=== PATIENT | female | born 1950 ===

== ENCOUNTER 2017-06-14 17:12 | Emergency (ER) | payer OTHER ==
[2017-06-14 17:25] VITALS: BP 167/83; PULSE 65; RESP 18; TEMP 98; O2SAT 98
[2017-06-14] MEDS ORDERED: Naproxen 550 mg Tab PO STA (18:11)
--- NOTE | 2017-06-14 18:19 | C.PDOC ---
History Of Present Illness Patient presents to ED c/o right sided posterior shoulder pain since yesterday. Patient denies falls/injuries, cough, fever, chest pain, abdominal pain, vomiting/diarrhea, fever, cough. Patient also states she sometimes has an area of swelling in her left upper abdomen, feels like an area bulging out. Patient has h/o lap cholecystectomy and CABG. Time Seen by Provider: 06/14/17 17:56 Chief Complaint (Nursing): Back Pain History Per: Patient History/Exam Limitations: no limitations Onset/Duration Of Symptoms: Days Current Symptoms Are (Timing): Still Present Quality Of Discomfort: "Pain" Severity: Mild Past Medical History Reviewed: Historical Data, Nursing Documentation, Vital Signs Vital Signs: Last Vital Signs Temp 98 F 06/14/17 17:22 Pulse 65 06/14/17 17:22 Resp 18 06/14/17 17:22 BP 167/83 H 06/14/17 17:22 Pulse Ox 98 06/14/17 18:46 - Medical History PMH: HTN, Hypercholesterolemia Surgical History: CABG, Cholecystectomy - [facility] Procedures CORONAR ARTERIOGR-2 CATH (12/08/14) LEFT HEART CARDIAC CATH (12/08/14) LT HEART ANGIOCARDIOGRAM (12/08/14) Family History: States: No Known Family Hx - Social History Hx Tobacco Use: No Hx Alcohol Use: No Hx Substance Use: No - Immunization History Hx Tetanus Toxoid Vaccination: Yes Hx Influenza Vaccination: Yes Hx Pneumococcal Vaccination: No Review Of Systems Except As Marked, All Systems Reviewed And Found Negative. Constitutional: Negative for: Fever, Chills Cardiovascular: Negative for: Chest Pain, Palpitations Respiratory: Negative for: Cough, Shortness of Breath Gastrointestinal: Negative for: Nausea, Vomiting, Abdominal Pain, Diarrhea Musculoskeletal: Positive for: Shoulder Pain (right shoulder posterior pain) Skin: Negative for: Rash Neurological: Negative for: Weakness, Numbness Physical Exam - Physical Exam Appears: Well, Non-toxic, No Acute Distress Skin: Normal Color, Warm, Dry, No Rash Oral Mucosa: Moist Neck: Normal, Normal ROM, No Midline Cervical Tenderness, No Paracervical Tenderness, Supple Cardiovascular: Rhythm Regular Respiratory: Normal Breath Sounds, No Rales, No Rhonchi, No Wheezing Gastrointestinal/Abdominal: Normal Exam, Bowel Sounds, Soft, No Tenderness, Other (no palpable hernias) Back: Normal Inspection, No CVA Tenderness Extremity: Tenderness (right shoulder mild diffuse TTP without swelling/ deformity/erythema), Capillary Refill (< 2 sec all digits ), No Deformity, No Swelling Extremity: Bilateral: Normal Color And Temperature, Normal ROM Pulses: Left Radial: Normal, Right Radial: Normal Neurological/Psych: Oriented x3, Normal Sensation Gait: Steady ED Course And Treatment O2 Sat by Pulse Oximetry: 98 (RA) Pulse Ox Interpretation: Normal - Other Rad RIGHT SHOULDER XRAY X-Ray: Interpreted by Me, Viewed By Me (no fractures/dislocations, (+) arthritic changes) Progress Note: Right shoulder Xray ordered and reviewed. Patient given PO Naprosyn and Flexeril. Reevaluation Time: 18:40 Reassessment Condition: Improved (Patient reassessed, is resting comfortably and states her pain has improved. Xray (-) for acute bony injury. Patient given Rxs for Naprosyn , Flexeril and instructed to follow up with PMD in 1-2 days. She was also given general surgery information for follow up (possible hernia). She understands she should return to ED if symptoms worsen.) Disposition Counseled Patient/Family Regarding: Studies Performed, Diagnosis, Need For Followup, Rx Given - Disposition Referrals: Jennifer Phan MD [Staff Provider] - Yolis Pandya MD [Staff Provider] - Disposition: HOME/ ROUTINE Disposition Time: 18:45 Condition: STABLE Additional Instructions: SEGUIMIENTO CON EL PEDIATRA EN 1-2 SULLIVAN USE MEDICAMENTOS SEGN LO DIRIGIDO INGA AL PACIENTE MUCHOS FLUIDOS DEVUELVA A LA SP DE EMERGENCIA SI LOS SNTOMAS EMPEORARAN Prescriptions: Cyclobenzaprine [Cyclobenzaprine HCl] 10 mg PO BID PRN #12 tab PRN Reason: pain/muscle Naproxen [Naprosyn Tab] 375 mg PO BID PRN #20 tab PRN Reason: pain Instructions: Shoulder Sprain (ED) Forms: [facility] (Dutch) Print Language: LATVIAN - POA Present On Arrival: None - Clinical Impression Clinical Impression: Right shoulder pain
[2017-06-14] MEDS ORDERED: Naproxen 550 mg Tab PO ONE (18:38)
--- NOTE | 2017-06-15 06:26 | RAD ---
PROCEDURE: Radiographs of the Right Shoulder HISTORY: right shoulder pain COMPARISON: No prior. FINDINGS: BONES: No evidence of acute fracture. JOINTS: Moderate osteoarthritic changes at the right AC joint associated with narrowing of the joint and inferior spur SOFT TISSUES: Normal. OTHER FINDINGS: None. IMPRESSION: Moderate osteoarthritic changes. No evidence of acute fracture or dislocation
== END 2017-06-14 18:57 | disposition home or self-care (01) ==
LOC: C.ER 17:12
DX: M25.511 Pain in right shoulder (principal)

== ENCOUNTER 2017-11-18 15:41 | Emergency (ER) | payer MEDICARE, OTHER ==
--- NOTE | 2017-11-18 16:47 | C.PDOC ---
History Of Present Illness 67 yo come in for evaluation of Left sided upper back and chest wall pain gradually developed for past 3-4 days. Pt reports, pain is intermittent, worse with movement, reproducible. Pt reports, " slipped on steps and almost fell, but was able to catch and hold on to railing". Otherwise, pt denies headache, dizziness, neck pain, SOB, cough, palpitation, diaphoresis, abd. pain, N/V, UTI sx. Ambulate to ED for evaluation, not in any apparent distress. Time Seen by Provider: 11/18/17 16:30 Chief Complaint (Nursing): Back Pain History Per: Patient History/Exam Limitations: no limitations Onset/Duration Of Symptoms: Days (3-4 days) Past Medical History Reviewed: Historical Data, Nursing Documentation, Vital Signs Vital Signs: Last Vital Signs Temp 97.5 F L 11/18/17 17:23 Pulse 68 11/18/17 17:23 Resp 20 11/18/17 17:23 BP 153/76 H 11/18/17 17:23 Pulse Ox 100 11/18/17 18:23 - Medical History PMH: HTN, Hypercholesterolemia Surgical History: CABG, Cholecystectomy - [facility] Procedures CORONAR ARTERIOGR-2 CATH (12/08/14) LEFT HEART CARDIAC CATH (12/08/14) LT HEART ANGIOCARDIOGRAM (12/08/14) Family History: States: No Known Family Hx - Social History Hx Tobacco Use: No Hx Alcohol Use: No Hx Substance Use: No - Immunization History Hx Tetanus Toxoid Vaccination: Yes Hx Influenza Vaccination: Yes Hx Pneumococcal Vaccination: No Review Of Systems Except As Marked, All Systems Reviewed And Found Negative. Cardiovascular: Positive for: Other ((+) chest wall pain). Negative for: Palpitations Respiratory: Negative for: Cough, Shortness of Breath Gastrointestinal: Negative for: Nausea, Vomiting, Abdominal Pain Musculoskeletal: Positive for: Back Pain (left sided upper back ). Negative for : Neck Pain Neurological: Negative for: Headache, Dizziness Physical Exam - Physical Exam Appears: Well, Non-toxic, No Acute Distress Skin: Normal Color, Warm, Dry, No Rash Head: Atraumatic, Normacephalic Eye(s): bilateral: PERRL Nose: No Flaring, No Discharge Oral Mucosa: Moist, No Drooling Throat: No Erythema, No Exudate, No Drooling Neck: Trachea Midline, No Midline Cervical Tenderness, No Paracervical Tenderness, No Step Off Deformity, Supple Chest: Symmetrical, Tenderness (mild Left anterior chest wall overlying 3-5 intercostal spaces. NO palpable deformity.), No Ecchymosis, No Subcutaneous Emphysema Cardiovascular: Rhythm Regular, No Murmur, No JVD, Other ((-) carotid bruits B/L ) Respiratory: No Decreased Breath Sounds, No Accessory Muscle Use, No Stridor, No Wheezing Gastrointestinal/Abdominal: Soft, No Tenderness, No Distention, No Guarding Back: No CVA Tenderness, No Vertebral Tenderness, Other ((+)reproducible tenderness Left periscapular area. No palpabe deformity, no skin changes.) Extremity: Normal ROM, No Pedal Edema, No Deformity, No Swelling Neurological/Psych: Oriented x3, Normal Speech, Normal Motor, Normal Sensation, Normal Reflexes ED Course And Treatment - Laboratory Results Result Diagrams: 11/18/17 17:45 11/18/17 17:45 Lab Interpretation: No Acute Changes ECG: Interpreted By Me, Viewed By Me ECG Rhythm: Sinus Rhythm Interpretation Of ECG: SR@70/min, NAD, no acute T wave or ST-T changes. Rate From EC (BPM) O2 Sat by Pulse Oximetry: 100 (RA) Pulse Ox Interpretation: Normal - Radiology CXR: Viewed By Me CXR Interpretation: Yes: No Acute Disease, Other (s/p CABG) Progress Note: After my initial evaluation, EKG, CXR performed. case discussed with and one jimmy of troponin recomend. On re-eval, at 18:20, blood work review and apears without acute abnormalities. Case discussed with again , blood work review, Troponin- negative, clinically pain appears reproducible, discahrge recommend at this time. On re-eval, pt is afebrile, hemodynamicaly stable. non-toxic. PulseOx 100% RA. Neck: SUpple, (-) JVD, (-) carotid bruits. Lungs: CTA B/L, BS equal B/L. CVS: (+)S1S2, reg, (-) murmur. ABd: benign. Neurologicaly intact. Pt advised and ref. to F/U with PMD in 1-2 days for re-eval. return to ED at any time if any worsening or new changes. Medical Decision Making Medical Decision Making: PLAN: * CXR * EKG * Troponin * CBC * BMP * Urinalysis * Tramadol PO Disposition Counseled Patient/Family Regarding: Studies Performed, Diagnosis, Need For Followup, Rx Given - Disposition Referrals: Jennifer Phan MD [Staff Provider] - Disposition: HOME/ ROUTINE Disposition Time: 18:24 Condition: STABLE Additional Instructions: Light duty to back area, avoid any type of physical activity for 1 week Take pain medication as need Follow up with PMD in 1-2 days for re-evaluation. Return to ED if any worsening or new changes. Prescriptions: Methocarbamol [Robaxin] 500 mg PO TID #14 tab traMADol [Ultram] 50 mg PO TID #7 tab Instructions: Muscle Spasm (ED), Back Pain (ED) Forms: [employer] (Montserratian) - Clinical Impression Clinical Impression: Thoracic back pain, Chest pain - PA / SUPERVISOR MIRROR [employer]RICATION / Resident Statement MD/DO has reviewed & agrees with the documentation as recorded. - Scribe Statement The provider has reviewed the documentation as recorded by the Scribe Lexis Zhang All medical record entries made by the Scribe were at my direction and personally dictated by me. I have reviewed the chart and agree that the record accurately reflects my personal performance of the history, physical exam, medical decision making, and the department course for this patient. I have also personally directed, reviewed, and agree with the discharge instructions and disposition.
[2017-11-18 17:02] LABS: SQUAMOUS EPITHIAL 1 /hpf (0-5); URINE BACTERIA RARE (<OCC); URINE BILIRUBIN NEGATIVE (NEGATIVE); URINE BLOOD NEGATIVE (NEGATIVE); URINE CLARITY Clear (Clear); URINE COLOR Yellow (YELLOW); URINE GLUCOSE (UA) NORMAL (Normal); URINE LEUKOCYTE ESTERASE NEGATIVE Leu/uL (Negative); URINE NITRATE NEGATIVE (NEGATIVE); URINE PROTEIN NEGATIVE (NEGATIVE); URINE UROBILINOGEN NORMAL mg/dL (0.2-1.0)
--- NOTE | 2017-11-18 17:21 | RAD ---
HISTORY: Cough COMPARISON: 08/21/2016 TECHNIQUE: Chest PA and lateral FINDINGS: LUNGS: Increased interstitial markings/chronic finding identified previously. PLEURA: No significant pleural effusion identified. No pneumothorax apparent. CARDIOVASCULAR: No radiographic findings to suggest acute or significant cardiovascular disease. OSSEOUS STRUCTURES: No significant abnormalities. VISUALIZED UPPER ABDOMEN: Normal. OTHER FINDINGS: None. IMPRESSION: No active disease. No significant interval change compared to the prior examination(s).
[2017-11-18 17:24] VITALS: BP 153/76; PULSE 68; RESP 20; TEMP 97.5
[2017-11-18 17:39] VITALS: O2SAT 100
[2017-11-18 17:51] LABS: BASO % 0.7 % (0.0-2.0); EOS # 0.1 K/uL (0.0-0.7); EOS % 1.5 % (0.0-4.0); HEMOGLOBIN 12.9 g/dL (11.0-16.0); LYMPH # 2.7 K/uL (1.0-4.3); LYMPH % 40.7 % (20.0-40.0); MEAN CELL VOLUME 87.1 fL (81.0-99.0); MEAN CORPUSCULAR HEMOGLOBIN 30.1 pg (27.0-31.0); MEAN CORPUSCULAR HGB CONC 34.5 g/dL (33.0-37.0); MEAN PLATELET VOLUME 8.9 fL (7.2-11.7); MONO # 0.6 K/uL (0.0-0.8); MONO % 8.8 % (0.0-10.0); NEUT # 3.2 K/uL (1.8-7.0); NEUT % 48.3 % (50.0-75.0); NRBC % 0.1 % (0.0-2.0); RBC 4.28 Mil/uL (3.80-5.20); RED CELL DISTRIBUTION WIDTH 13.8 % (11.5-14.5); WHITE BLOOD COUNT 6.7 K/uL (4.8-10.8)
[2017-11-18 18:10] LABS: BLOOD UREA NITROGEN 10 mg/dL (7-17); CALCIUM 8.4 mg/dl (8.6-10.4); GFR AFRICAN-AMERICAN > 60; GFR NON-AFRICAN AMERICAN > 60
--- NOTE | 2017-11-20 00:02 | CARD ---
APPROVED REPORT EKG Measurement Heart [id number] <Conclusion> Normal sinus rhythm Nonspecific T wave abnormality Abnormal ECG
== END 2017-11-18 18:35 | disposition home or self-care (01) ==
LOC: C.ER 15:41
DX: M54.6 Pain in thoracic spine (principal); R07.9 Chest pain, unspecified

== ENCOUNTER 2018-03-29 18:05 | Emergency (ER) | payer MEDICARE, OTHER ==
[2018-03-29 18:21] VITALS: BP 129/76; PULSE 66; RESP 18; TEMP 98.3; O2SAT 100
--- NOTE | 2018-03-29 18:45 | C.PDOC ---
History Of Present Illness 67 year old female presenting to the ER status post fall complaining of right knee pain. Patient states she tripped and fell. Pain is worsened by movement. Patient denies any tingling, numbness, or weakness. Time Seen by Provider: 03/29/18 18:21 Chief Complaint (Nursing): Lower Extremity Problem/Injury History Per: Patient History/Exam Limitations: no limitations Onset/Duration Of Symptoms: Days Current Symptoms Are (Timing): Still Present - Knee Description Of Injury: Other (Tripped and fell) Past Medical History Reviewed: Historical Data, Nursing Documentation, Vital Signs Vital Signs: Last Vital Signs Temp 98.3 F 03/29/18 18:20 Pulse 66 03/29/18 18:20 Resp 18 03/29/18 18:20 BP 129/76 03/29/18 18:20 Pulse Ox 100 03/29/18 19:12 - Medical History PMH: HTN, Hypercholesterolemia Surgical History: CABG, Cholecystectomy - [facility] Procedures CORONAR ARTERIOGR-2 CATH (12/08/14) LEFT HEART CARDIAC CATH (12/08/14) LT HEART ANGIOCARDIOGRAM (12/08/14) Family History: States: No Known Family Hx - Social History Hx Tobacco Use: No Hx Alcohol Use: No Hx Substance Use: No - Immunization History Hx Tetanus Toxoid Vaccination: Yes Hx Influenza Vaccination: Yes Hx Pneumococcal Vaccination: No Review Of Systems Except As Marked, All Systems Reviewed And Found Negative. Musculoskeletal: Positive for: Other (Right knee pain ) Neurological: Negative for: Weakness, Numbness Physical Exam - Physical Exam Appears: Non-toxic, No Acute Distress Skin: Normal Color, Warm, Dry Head: Atraumatic, Normacephalic Eye(s): bilateral: Normal Inspection Neck: Supple Chest: Symmetrical Cardiovascular: Rhythm Regular Respiratory: Normal Breath Sounds Extremity: Normal ROM (Right leg), Tenderness (Mild tenderness to anterior right knee ), No Calf Tenderness, No Deformity, No Swelling Neurological/Psych: Oriented x3, Normal Speech Gait: Steady ED Course And Treatment O2 Sat by Pulse Oximetry: 100 (RA) Pulse Ox Interpretation: Normal Medical Decision Making Medical Decision Making: Impression: Right Knee Pain s.p injury Plan: XR Right Knee Ibuprofen 600mg PO Progress: Xray viewed by me showing no acute fracture, dislocation or effusion On reassessment, patient is resting comfortably, and is in no acute distress. Patient was instructed to follow up with physician/clinic in 1-2 days for further evaluation. Disposition Counseled Patient/Family Regarding: Studies Performed, Diagnosis, Need For Followup - Disposition Referrals: Keanu Solano MD [Staff Provider] - Disposition: HOME/ ROUTINE Disposition Time: 18:44 Condition: GOOD Additional Instructions: Your xray was normal, no fracture. Please apply ice to area 15 minutes three times a day. Take Motrin as needed for pain every 6 hours, with food to not upset stomach. Follow up with orthopedic if pain persists over one week. Tu radiografa fue normal, sin fractura. Por favor aplique hielo en el emerson 15 minutos ana maria veces al da. Lohman Motrin cuando sea necesario para el dolor cada 6 horas, con alimentos para no alterar el estmago. Princess un seguimiento con ortopedia si el dolor persiste jai amelia semana. Instructions: Contusion (DC) Print Language: KINYARWANDA - POA Present On Arrival: Falls Or Trauma - Clinical Impression Clinical Impression: Contusion, knee
--- NOTE | 2018-03-30 11:02 | RAD ---
PROCEDURE: Right Knee Radiographs. HISTORY: pain s.p trip and fall COMPARISON: None. FINDINGS: BONES: No acute fracture or destructive bony lesion identified. JOINTS: Cortical sclerosis and limited joint space narrowing seen at the medial and patellofemoral compartments compatible with osteoarthritis once again. Subtle solitary surgical sulci in the medial left knee soft tissues extrinsic to the joint. JOINT EFFUSION: None. OTHER FINDINGS: None. IMPRESSION: Stable degenerative joint disease. No acute fracture, subluxation or dislocation identified.
== END 2018-03-29 18:50 | disposition home or self-care (01) ==
LOC: C.ER 18:05
DX: S80.01XA Contusion of right knee, initial encounter (principal); W01.0XXA Fall on same level from slipping, tripping and stumbling without subsequent striking against object, initial encounter; Y92.9 Unspecified place or not applicable

== ENCOUNTER 2018-06-24 11:47 | Emergency (ER) | payer MEDICARE, OTHER ==
[2018-06-24 11:59] VITALS: PULSE 72
[2018-06-24] MEDS ORDERED: Sodium Chloride 0.9% 1,000 ML IV ONE (12:44)
--- NOTE | 2018-06-24 12:46 | C.PDOC ---
History Of Present Illness 68 year old female patient with hx of HLD and mastectomy presents to the ER with c/o vomiting last night. Patient states she had 2 episodes of vomiting last night. Associated symptom includes: abdominal pain. Patient denies fever, chills, cough, chest pain and SOB. Chief Complaint (Nursing): Abdominal Pain History Per: Patient History/Exam Limitations: no limitations Onset/Duration Of Symptoms: Hrs Current Symptoms Are (Timing): Still Present Past Medical History Reviewed: Historical Data, Nursing Documentation, Vital Signs Vital Signs: Last Vital Signs Temp 98.5 F 06/24/18 14:42 Pulse 72 06/24/18 14:42 Resp 16 06/24/18 14:42 BP 122/70 06/24/18 14:42 Pulse Ox 99 06/24/18 14:42 - Medical History PMH: HTN, Hypercholesterolemia Surgical History: CABG, Cholecystectomy - [facility] Procedures CORONAR ARTERIOGR-2 CATH (12/08/14) LEFT HEART CARDIAC CATH (12/08/14) LT HEART ANGIOCARDIOGRAM (12/08/14) Family History: States: Unknown Family Hx - Social History Hx Tobacco Use: No Hx Alcohol Use: No Hx Substance Use: No - Immunization History Hx Tetanus Toxoid Vaccination: Yes Hx Influenza Vaccination: Yes Hx Pneumococcal Vaccination: No Review Of Systems Except As Marked, All Systems Reviewed And Found Negative. Constitutional: Negative for: Fever, Chills Cardiovascular: Negative for: Chest Pain Respiratory: Negative for: Cough, Shortness of Breath Gastrointestinal: Positive for: Vomiting, Abdominal Pain Physical Exam - Physical Exam Appears: Well, Non-toxic, No Acute Distress Skin: Normal Color, Warm, Dry Head: Atraumatic, Normacephalic Eye(s): bilateral: Normal Inspection Oral Mucosa: Moist Throat: Normal Neck: Normal ROM, Supple Chest: Symmetrical, No Deformity, Tenderness Respiratory: Normal Breath Sounds Gastrointestinal/Abdominal: Soft, No Tenderness Extremity: Normal ROM (x4) Neurological/Psych: Oriented x3, Normal Speech Gait: Steady ED Course And Treatment - Laboratory Results Result Diagrams: 06/24/18 12:59 06/24/18 12:59 O2 Sat by Pulse Oximetry: 97 (RA) Pulse Ox Interpretation: Normal Medical Decision Making Medical Decision Making: Impression: gastritis Plans: -- EKG -- blood work -- pepcid -- IV fluids -- Zofran injection Reassess: Patient is resting comfortably. Tolerating PO. Patient feels better and feels comfortable going home. Patient is advised to f/u with PMD in 1-2 days. Disposition - Disposition Referrals: [facility] [place] [Outside] [facility] at [facility] [Outside] [facility] at [place] [Outside] Disposition: HOME/ ROUTINE Disposition Time: 14:47 Condition: GOOD Prescriptions: Famotidine [Pepcid] 40 mg PO DAILY #30 tablet Forms: [employer] (Lao) - Clinical Impression Clinical Impression: Gastritis - Scribe Statement The provider has reviewed the documentation as recorded by the Scribe Vital Do Provider Attestation: All medical record entries made by the Scribe were at my direction and personally dictated by me. I have reviewed the chart and agree that the record accurately reflects my personal performance of the history, physical exam, medical decision making, and the department course for this patient. I have also personally directed, reviewed, and agree with the discharge instructions and disposition.
[2018-06-24 13:04] LABS: BASO % 0.3 % (0.0-2.0); EOS % 0.2 % (0.0-4.0); HEMOGLOBIN 12.7 g/dL (11.0-16.0); LYMPH # 2.9 K/uL (1.0-4.3); LYMPH % 22.9 % (20.0-40.0); MEAN CELL VOLUME 87.6 fL (81.0-99.0); MEAN CORPUSCULAR HEMOGLOBIN 29.5 pg (27.0-31.0); MEAN CORPUSCULAR HGB CONC 33.7 g/dL (33.0-37.0); MEAN PLATELET VOLUME 8.9 fL (7.2-11.7); MONO # 1.1 K/uL (0.0-0.8); NEUT # 8.6 K/uL (1.8-7.0); NEUT % 67.6 % (50.0-75.0); RBC 4.29 Mil/uL (3.80-5.20); RED CELL DISTRIBUTION WIDTH 13.9 % (11.5-14.5)
[2018-06-24] MEDS ORDERED: Sodium Chloride 0.9% 1,000 ML ONE (13:04)
[2018-06-24 13:08] LABS: WHITE BLOOD COUNT 12.7 K/uL (4.8-10.8)
[2018-06-24 13:24] LABS: ALB/GLOB RATIO 1.3 (1.0-2.1); ALBUMIN 4.1 g/dL (3.5-5.0); CALCIUM 8.7 mg/dl (8.6-10.4); GFR NON-AFRICAN AMERICAN > 60; LIPASE 37 U/L (23-300)
[2018-06-24 13:26] LABS: ALT/SGPT 34 U/L (9-52); AST/SGOT 26 U/L (14-36); BLOOD UREA NITROGEN 12 mg/dL (7-17)
[2018-06-24] MEDS ORDERED: Potassium Chloride 10 mEq ER Tab PO ONE (14:39)
[2018-06-24 14:43] VITALS: BP 122/70; RESP 16; TEMP 98.5
--- NOTE | 2018-06-25 00:14 | CARD ---
APPROVED REPORT Date of service: 06/24/2018 EKG Measurement Heart [id number] <Conclusion> Normal sinus rhythm Nonspecific T wave abnormality Abnormal ECG
[2018-06-25] MEDS ORDERED: Potassium Chloride 10 mEq ER Tab PO ONE (14:22)
[2018-06-27 12:51] VITALS: O2SAT 97
== END 2018-06-24 14:48 | disposition home or self-care (01) ==
LOC: C.ER 11:47
DX: K29.70 Gastritis, unspecified, without bleeding (principal)
CPT/HCPCS: 80053; 83690; 84484; 85025; 93005; 96361; 96374; 96375; 99284; J2405; J7030

== ENCOUNTER 2018-12-11 16:39 | Emergency (ER) | payer MEDICARE, MEDICAID ==
--- NOTE | 2018-12-11 17:26 | C.PDOC ---
<Mary Romano - Last Filed: 12/11/18 17:26> <Aurea Caldwell - Last Filed: 12/11/18 17:45> Time Seen by Provider: 12/11/18 17:03 Chief Complaint (Nursing): Allergic Reaction Past Medical History Vital Signs: Last Vital Signs Temp 98.3 F 12/11/18 16:48 Pulse 78 12/11/18 16:48 Resp 20 12/11/18 16:48 BP 168/83 H 12/11/18 16:48 Pulse Ox 99 12/11/18 16:48 - Medical History PMH: HTN, Hypercholesterolemia Denies: Chronic Kidney Disease Surgical History: CABG, Cholecystectomy - [facility] Procedures CORONAR ARTERIOGR-2 CATH (12/08/14) LEFT HEART CARDIAC CATH (12/08/14) LT HEART ANGIOCARDIOGRAM (12/08/14) Family History: States: Unknown Family Hx - Social History Hx Tobacco Use: No Hx Alcohol Use: No Hx Substance Use: No - Immunization History Hx Tetanus Toxoid Vaccination: Yes Hx Influenza Vaccination: Yes Hx Pneumococcal Vaccination: No <Mary Romano - Last Filed: 12/11/18 17:26> Vital Signs: Last Vital Signs Temp 98.3 F 12/11/18 16:48 Pulse 78 12/11/18 16:48 Resp 20 12/11/18 16:48 BP 168/83 H 12/11/18 16:48 Pulse Ox 99 12/11/18 17:26 - [facility] Procedures CORONAR ARTERIOGR-2 CATH (12/08/14) LEFT HEART CARDIAC CATH (12/08/14) LT HEART ANGIOCARDIOGRAM (12/08/14) <Aurea Caldwell - Last Filed: 12/11/18 17:45> ED Course And Treatment O2 Sat by Pulse Oximetry: 99 <Mary Romano - Last Filed: 12/11/18 17:26> Supervising Attending Note - Supervising Attending Note The Documented history was done by the: Physician Director Oracle The documented physical exam was done by the: Physician Director Oracle The documented procedures were done by the: Physician Director Oracle EM CAVEAT: Language Barrier - Attestation: I have personally seen and examined this patient.: Yes I have fully participated in the care of the patient.: Yes I have reviewed all pertinent clinical information: Yes - Notes: Notes:: TONGUE SWELLING SINCE 1130 ONSET AFTER EATING BBQ POTATO CHIPS. PS INITIALLY THOUGHT SHE CUT TONGUE WHILE EATING THE CHIPS, LATER DEVELOPED PALPITATIONS AND B/L FINGERTIPS TURNED PURPLE. TOOK BENADRYL UNK DOSE @ 1500. STILL W PERSIST TONGUE SWELL. PALPITATIONS, FINGERTIP DISCOLORATION RESOLVED. NO ITCH, SOB, CP, GI SX, DIZZY. CURRENTLY ON IRBESARTAN. PS PREVIOUSLY ON LISINOPRIL AND HAD SIM REACTION. EXAM ABOVE. VSS. <Aurea Caldwell - Last Filed: 12/11/18 17:45> Disposition <Mary Romano - Last Filed: 12/11/18 17:26> <Aurea Caldwell - Last Filed: 12/11/18 17:45> - Disposition Forms: [facility] (Algerian)
[2018-12-11] MEDS ORDERED: MethylPREDNISolone 40 mg Vial IVP STA (17:45)
[2018-12-11] MEDS ORDERED: DiphenhydrAMINE 50 mg/ml Inj IVP STA (17:49)
--- NOTE | 2018-12-11 17:55 | C.PDOC ---
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 She states that she was eating [employer] potato chips and believes she cut her tongue with one of the chips. She states that she has had these chips before without any issues. She reports palpitations when it initially happen and pain just of her tongue. She reports taking 1/2 a cup of Benadryl suspension at 3pm. She denies itching, cough, SOB, dizziness, weakness, chest pain, N/V, and abdominal pain. 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) Onset/Duration Of Symptoms: Hrs, Gradual Current Symptoms Are (Timing): Still Present Context: Other (Meds) Possible Cause: Other (ARBs) Associated Symptoms: Swelling (of tongue) Home/EMS Treatment: Benadryl Past Medical History Reviewed: Historical Data, Nursing Documentation, Vital Signs Vital Signs: Last Vital Signs Temp 98.3 F 12/11/18 16:48 Pulse 78 12/11/18 16:48 Resp 20 12/11/18 16:48 BP 168/83 H 12/11/18 16:48 Pulse Ox 99 12/11/18 17:26 - Medical History PMH: HTN, Hypercholesterolemia Denies: Chronic Kidney Disease Surgical History: CABG, [facility]olecyst[facility] - [facility] CORONAR ARTERIOGR-2 CATH (12/08/14) LEFT HEART CARDIAC CATH (12/08/14) LT HEART ANGIOCARDIOGRAM (12/08/14) Family History: States: Unknown Family Hx - Social History Hx Tobacco Use: No Hx Alcohol Use: No Hx Substance Use: No - Immunization History Hx Tetanus Toxoid Vaccination: Yes Hx Influenza Vaccination: Yes Hx Pneumococcal Vaccination: No Review Of Systems Constitutional: Negative for: Fever, Chills, Weakness ENT: Positive for: Mouth Swelling (tongue). Negative for: Throat Pain, Throat Swelling Cardiovascular: Positive for: Palpitations Respiratory: Negative for: Cough, Shortness of Breath Gastrointestinal: Negative for: Nausea, Vomiting, Abdominal Pain Skin: Negative for: Rash Neurological: Negative for: Headache, Dizziness Physical Exam - Physical Exam Appears: Well, Non-toxic, No Acute Distress Skin: Normal Color, Warm, Dry, No Rash, No Cyanotic Head: Atraumatic, Normacephalic, No Tenderness Eye(s): bilateral: Normal Inspection Ear(s): Bilateral: Normal (TM intact) Nose: Flaring Oral Mucosa: Moist Tongue: Swelling Throat: No Erythema Neck: Supple Chest: Symmetrical Cardiovascular: Rhythm Regular Respiratory: Normal Breath Sounds, No Stridor, No Wheezing Gastrointestinal/Abdominal: Soft, No Tenderness Neurological/Psych: Oriented x3, Normal Speech, Normal Sensation ED Course And Treatment O2 Sat by Pulse Oximetry: 99 Medical Decision Making Medical Decision Making: A/P: Allergic Reaction to ARBs (Irbesartan) - patient had similar reaction to Ryne inhibitors in the past - given Benadryl, Solu-Medrol, and Pepcid now - patient is comfortable and stable - patient was advised to discontinue med and start HCTZ 12.5mg daily - continue Benadryl prn and start Pred 60mg x 5 days - advised patient to follow up with PCP for HTN management Disposition Counseled Patient/Family Regarding: Diagnosis, Need For Followup, Rx Given - Disposition Referrals: Jennifer Phan MD [Staff Provider] - Disposition: HOME/ ROUTINE Disposition Time: 19:45 Condition: IMPROVED Additional Instructions: MARC MARIANO, thank you for letting us take care of you today. Your provider was Aurea Caldwell MD/ Mary Romano PA-C and you were treated for PALPITATIONS/ALLERGIC REACTION. The emergency medical care you received today was directed at your acute symptoms. If you were prescribed any medication, please fill it and take as directed. It may take several days for your symptoms to resolve. Return to the Emergency Department if your symptoms worsen, do not improve, or if you have any other problems. Discontinue Irbesartan and start HCTZ 12.5mg daily. Please contact your doctor for management of hypertension as soon as possible. Bring any paperwork you were given at discharge with you along with any medications you are taking to your follow up visit. Our treatment cannot replace ongoing medical care by a primary care provider outside of the emergency department. Thank you for allowing the [facility] team to be part of your care today. Prescriptions: Diphenhydramine HCl [Benadryl Allergy] 25 mg PO BID PRN #14 tablet PRN Reason: Allergy Symptoms Famotidine [Pepcid] 20 mg PO DAILY #14 tab RX: Hydrochlorothiazide [Microzide] 12.5 mg PO DAILY #14 cap RX: predniSONE [predniSONE Tab] 60 mg PO DAILY 5 Days #15 tab Instructions: Angioedema (DC), Adverse Drug Reactions, Adult (DC) Forms: [employer] (Kenyan) - Clinical Impression Clinical Impression: Angioedema, Allergic reaction caused by a drug - PA / SOCIAL MEDIA MARKETER / Resident Statement MD/DO has reviewed & agrees with the documentation as recorded.
[2018-12-11] MEDS ORDERED: MethylPREDNISolone 40 mg Vial ONE (18:10)
[2018-12-11] MEDS ORDERED: DiphenhydrAMINE 50 mg/ml Inj ONE (18:11)
[2018-12-11 19:54] VITALS: BP 109/83; PULSE 80; RESP 20; TEMP 98.4
[2018-12-11 20:06] VITALS: O2SAT 99
--- NOTE | 2018-12-12 17:43 | CARD ---
APPROVED REPORT Date of service: 12/11/2018 EKG Measurement Heart [id number] <Conclusion> Normal sinus rhythm Normal ECG
== END 2018-12-11 19:55 | disposition home or self-care (01) ==
LOC: C.ER 16:39
DX: T78.3XXA Angioneurotic edema, initial encounter (principal); T46.5X5A Adverse effect of other antihypertensive drugs, initial encounter
CPT/HCPCS: 93005; 96374; 96375; 99285; J1200; J2920

== ENCOUNTER 2019-02-19 08:48 | Outpatient (CLI) | payer MEDICARE, MEDICAID | END 2019-02-19 08:49 | disposition home or self-care (01) | LOC: C.MAMMO 08:48 | DX: Z12.31 Encounter for screening mammogram for malignant neoplasm of breast (principal) ==

== ENCOUNTER 2019-03-05 09:54 | Outpatient (CLI) | payer MEDICARE, MEDICAID | END 2019-03-05 09:55 | disposition home or self-care (01) | LOC: C.DEXAIC 09:55 | DX: M81.0 Age-related osteoporosis without current pathological fracture (principal) ==